=== PATIENT | female | born 2000 | race Caucasian/White ===

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

== ENCOUNTER 2019-04-14 20:44 | Emergency (ER) | payer OTHER ==
[~2019-04-14] VITALS: Ht 170.2 cm; Wt 99.6 kg
[2019-04-14 22:51] VITALS: BP 109/65
== END 2019-04-14 22:51 | disposition home or self-care (01) ==
LOC: ED 20:44
DX: G44.209 Tension-type headache, unspecified, not intractable (principal); H53.8 Other visual disturbances
CPT/HCPCS: J0780; J1885; Q0162